=== PATIENT | female | born 1980 ===

== ENCOUNTER 2019-01-15 14:38 | Emergency (ER) | payer BC, MEDICAID ==
[2019-01-15] MEDS ORDERED: DELTASONE PO ONE (17:32)
[2019-01-15] MEDS ORDERED: IBUPROFEN PO ONE (17:32)
--- NOTE | 2019-01-15 17:46 | XRay Report ---
PROCEDURE: XR CHEST ROUTINE 2V TECHNIQUE: PA and lateral chest radiographs were obtained. HISTORY: IRASEMA, cough COMPARISONS: None. FINDINGS: Frontal and lateral views the chest were acquired. The heart is normal in size. The lungs a ppear clear. The pleura and mediastinum are within normal limits. IMPRESSION: No active disease in the chest This document is electronically signed by Lebron Angel MD., January 15 2019 05:44:39 PM ET
--- NOTE | 2019-01-15 18:09 | Emergency Department Report ---
Minor Respiratory - [facility] Chief Complaint: Adult Asthma Stated Complaint: ASTHMA/IRASEMA/CHILLS/BODY ACHE Time Seen by Provider: 01/15/19 17:31 Duration: 2 Days Pain Location: Chest Minor Respiratory: Yes Able to Tolerate Fluids, Yes Cough, Yes Chest Pain, Yes Shortness of Breath, No Rhinorrhea, No Sore Throat, No Ear Pain, No Sick Contacts, No Hemoptysis, No Fever Other History: 38-year-old -[place] female presents to the emergency room for asthma related difficulty breathing. He should also admits to having chills and body aches. Patient denies any fever no nausea no vomiting. Patient reports she does have a good appetite. Patient reports she is given herself 1 treatment at home. Patient reports a past medical history of anemia asthma hypertension and GERD. Patient reports she is currently taking lisinopril metoprolol. ED Review of Systems ROS: Stated complaint: ASTHMA/IRASEMA/CHILLS/BODY ACHE Other details as noted in HPI ED Past Medical Hx - Social History Smoking Status: Current Some Day Smoker Substance Use Type: Alcohol - Medications Home Medications: Home Medications Medication Instructions Recorded Confirmed Last Taken Type Nitrofurantoin Bracken/M-Cryst 100 mg PO Q12HR 10 Days #20 capsule 01/15/19 Unknown Rx [Macrobid CAP] Minor Respiratory Exam - Exam General: Vital signs noted. No distress. Alert and acting appropriately. Neurologic: Alert and oriented, no deficits. Musculoskeletal: Unremarkable. ED Course Vital Signs 01/15/19 14:44 Temperature 98.7 F Pulse Rate 101 H Respiratory 18 Rate Blood Pressure 129/86 O2 Sat by Pulse 96 Oximetry ED Medical Decision Making - Radiology Data Radiology results: report reviewed Patient: ALEX AWAD MR#: [id number] : 1980 Acct:[id number] Age/Sex: 38 / F ADM Date: 01/15/19 Loc: ED Attending Dr: Ordering Physician: BHAVIN RITTER MD Date of Service: 01/15/19 Procedure(s): XR chest routine 2V Accession Number(s): [id number] cc: BHAVIN RITTER MD Fluoro Time In Minutes: PROCEDURE: XR CHEST ROUTINE 2V TECHNIQUE: PA and lateral chest radiographs were obtained. HISTORY: IRASEMA, cough COMPARISONS: None. FINDINGS: Frontal and lateral views the chest were acquired. The heart is normal in size. The lungs appear clear. The pleura and mediastinum are within normal limits. IMPRESSION: No active disease in the chest This document is electronically signed by Lebron Angel MD., January 15 2019 05:44:39 PM ET Transcribed By: FLASH Dictated By: LEBRON ANGEL MD Electronically Authenticated By: LEBRON ANGEL MD Signed Date/Time: 01/15/19 174 DD/ 12 TD/TT: 01/15/191712 - Medical Decision Making 38-year-old [place] female comes in for difficulty breathing or flulike symptoms. No shortness of breath. Patient's chest x-ray unremarkable. Patient reports no changes in feeling better after having her nebulizer treatment. At this time I will order a CBC CMP and urinalysis. Patient does have a history of anemia rule out any anemic related shortness of breath. Patient has also been given prednisone and ibuprofen for pain management. Critical care attestation.: If time is entered above; I have spent that time in minutes in the direct care of this critically ill patient, excluding procedure time. ED Disposition Clinical Impression: UTI (urinary tract infection) Qualifiers: Urinary tract infection type: site unspecified Hematuria presence: without hematuria Qualified Code(s): N39.0 - Urinary tract infection, site not specified Disposition: -01 TO HOME OR SELFCARE Is pt being admited?: No Does the pt Need Aspirin: No Condition: Stable Instructions: Urinary Tract Infection in Women (ED) Additional Instructions: Complete antibiotics as prescribed. Pain medication as needed. Follow up with the [facility] provider or primary care provider if his symptoms persist or gets worse. Prescriptions: Nitrofurantoin Bracken/M-Cryst [Macrobid CAP] 100 mg PO Q12HR 10 Days #20 capsule Referrals: [facility] [Provider Group] - 3-5 Days Forms: Work/School Release Form(ED)
[2019-01-15 18:28] LABS: Basophils # (Auto) 0.1 K/mm3 (0.0-0.1); Basophils % (Auto) 0.6 % (0.0-1.8); Eosinophils # (Auto) 0.1 K/mm3 (0.0-0.4); Eosinophils % (Auto) 1.3 % (0.0-4.3); Hematocrit 34.3 % (30.3-42.9); Hemoglobin 11.3 gm/dl (10.1-14.3); Lymphocytes # (Auto) 1.5 K/mm3 (1.2-5.4); Lymphocytes % (Auto) 14.5 % (13.4-35.0); Mean Corpuscular HGB Conc 33 % (30-34); Mean Corpuscular Volume 87 fl (79-97); Monocytes # (Auto) 0.6 K/mm3 (0.0-0.8); Monocytes % (Auto) 5.7 % (0.0-7.3); Platelet Count 323 K/mm3 (140-440); Red Blood Count 3.95 M/mm3 (3.65-5.03); Red Cell Distribution Width 13.5 % (13.2-15.2)
[2019-01-15 18:53] LABS: BUN/Creatinine Ratio 7; Blood Urea Nitrogen 6 mg/dL (7-17); Calcium 8.4 mg/dL (8.4-10.2); Hemolysis Index 3
[2019-01-15 18:54] LABS: Bacteria,Urine 1+ /HPF (Negative); Bilirubin,Urine NEG (Negative); Blood,Urine NEG (Negative); Color,Urine Yellow (Yellow); Mucus,Urine FEW /HPF; Protein,Urine <15 mg/dL mg/dL (Negative); Urobilinogen,Urine < 2.0 mg/dL (<2.0)
[2019-01-15 19:37] VITALS: BP 122/68
== END 2019-01-15 19:44 | disposition home or self-care (01) ==
LOC: ED 14:38
DX: J45.909 Unspecified asthma, uncomplicated (principal); N39.0 Urinary tract infection, site not specified; F17.200 Nicotine dependence, unspecified, uncomplicated; I10 Essential (primary) hypertension; K21.9 Gastro-esophageal reflux disease without esophagitis; Z79.899 Other long term (current) drug therapy
CPT/HCPCS: 36415; 71046; 80048; 81001; 85025; 87086; 99284; J7512; 87076; 87186